=== PATIENT | male | born 1955 | race Caucasian/White ===

== ENCOUNTER 2024-10-24 06:25 | Day surgery (SDC) | payer OTHER, SELFPAY | END 2024-10-24 14:27 | disposition home or self-care (01) | LOC: GI 06:25 | PROVIDERS: ATTENDING PHYSICIAN Internal Medicine Gastroenterology; FAMILY PHYSICIAN Family Medicine | DX: Z12.11 Encounter for screening for malignant neoplasm of colon (principal); R19.5 Other fecal abnormalities; K57.30 Diverticulosis of large intestine without perforation or abscess without bleeding; K63.5 Polyp of colon; D12.3 Benign neoplasm of transverse colon; D12.2 Benign neoplasm of ascending colon; Z80.0 Family history of malignant neoplasm of digestive organs | CPT/HCPCS: 45385; 88305 ==